=== PATIENT | male | born 1980 | race Caucasian/White ===

== ENCOUNTER 2018-09-26 06:42 | Emergency (ER) | payer BC, OTHER ==
[~2018-09-26] VITALS: Ht 177.8 cm; Wt 90.7 kg
[2018-09-26] MEDS ORDERED: NS IV 1000 ML 1,000 ML IV STA (06:51)
[2018-09-26] MEDS ORDERED: fentaNYL INJECTION 100 MCG/2 ML AMP IVP STA ×2 (06:51→08:10)
[2018-09-26] MEDS ORDERED: KETOROLAC 30 MG/ML VIAL IVP STA (06:51)
[2018-09-26] MEDS ORDERED: ONDANSETRON 4 MG/2 ML (SDV) Z0FRAN IVP ONE (07:00)
[2018-09-26 07:18] LABS: BASOPHILS % (AUTO) 0 % (0-10); EOSINOPHILS # (AUTO) 0.1 10^3/uL (0.0-0.3); EOSINOPHILS % (AUTO) 2 % (0-10); HEMATOCRIT 43 % (40-54); HEMOGLOBIN 14.8 G/DL (13.3-17.7); LYMPHOCYTES # (AUTO) 2.2 X 10^3 (1.0-4.0); LYMPHOCYTES % (AUTO) 29 % (12-44); MEAN CORPUSCULAR HEMOGLOBIN 29 PG (25-34); MEAN CORPUSCULAR HGB CONC 34 G/DL (32-36); MEAN CORPUSCULAR VOLUME 86 FL (80-99); MEAN PLATELET VOLUME 11.3 FL (7.4-10.4); MONOCYTES % (AUTO) 12 % (0-12); NEUTROPHILS # (AUTO) 4.5 X 10^3 (1.8-7.8); NEUTROPHILS % (AUTO) 57 % (42-75); PLATELET COUNT 296 10^3/uL (130-400); RED CELL DISTRIBUTION WIDTH 13.1 % (10.0-14.5); WHITE BLOOD COUNT 7.8 10^3/uL (4.3-11.0)
[2018-09-26 07:32] LABS: ALBUMIN 4.3 GM/DL (3.2-4.5); BILIRUBIN,TOTAL 0.5 MG/DL (0.1-1.0); CALCIUM 9.1 MG/DL (8.5-10.1); CREATININE SERUM 1.48 MG/DL (0.60-1.30); POTASSIUM 3.9 MMOL/L (3.6-5.0); TOTAL PROTEIN 6.7 GM/DL (6.4-8.2)
--- NOTE | 2018-09-26 07:37 | Diagnostic Imaging Report ---
PROCEDURE: CT urinary tract, rule out kidney stone. TECHNIQUE: Multiple contiguous axial images were obtained through the abdomen and pelvis without the use of intravenous contrast. Auto Exposure Controls were utilized during the CT exam to meet ALARA standards for radiation dose reduction. INDICATION: Abdominal pain. COMPARISON: None available. FINDINGS: Evaluation of the abdominal viscera is mildly limited without contrast. Lower chest: The lung bases are clear. No pericardial or pleural effusion. Peritoneum: No free intraperitoneal air or fluid. Liver and biliary system: Unenhanced liver is normal. The gallbladder is normal. No biliary duct dilation. Spleen and Pancreas: Spleen is normal. Unenhanced pancreas is grossly normal. Adrenals: Normal. tract: Mild right hydronephrosis and hydroureter due to a 3 mm partially obstructing stone at the right UVJ. There are a few nonobstructing left renal stones measuring up to 3 mm. No left ureteral stones. Urinary bladder is decompressed. Prostate is not enlarged. GI tract: Stomach is partially filled with fluid and air and there is no wall thickening. No bowel obstruction. No pericolonic inflammatory changes. Appendectomy. Vasculature and Lymph nodes: Normal caliber aorta. No abdominal or pelvic lymphadenopathy. Musculoskeletal: No concerning osseous lesion. IMPRESSION: 1. A 3 mm right UVJ stone is partially obstructing resulting in mild right hydronephrosis and hydroureter. 2. Additional nonobstructing small left renal stones. Dictated by: Dictated on workstation # [id number]
[2018-09-26] MEDS ORDERED: HYDROcodone/APAP 7.5 MG/325 MG (LORTAB, LORCET PLUS) TABLET PO STA (08:10)
[2018-09-26] MEDS ORDERED: NS IV 1000 ML 1,000 ML IV ONE (08:10)
--- NOTE | 2018-09-26 09:05 | ED GU-Male ---
General Chief Complaint: Abdominal/GI Problems Stated Complaint: ABD PAIN Nursing Triage Note: PT AMBULATES TO ROOM 10 AND C/O RIGHT-SIDED ABDOMINAL PAIN STARTING AROUND 0530 WHEN HE TRIED TO GO TO THE BATHROOM. PT STATES HE WASN'T ABLE TO URINATE AND PAIN IS INTENSIFYING. PT IS RESTLESS AND RATES PAIN 9/10 AT THIS TIME. Source: patient Exam Limitations: no limitations History of Present Illness Date Seen by Provider: September 26, 2018 Time Seen by Provider: 06:48 Initial Comments Here with report of right-sided abdominal pain that started about 5:30 this morning. States that it hurt worse with trying to urinate. Unable to get comfortable. No history of kidney stones. Has had appendectomy previously. Has had nausea but no vomiting. Denies fever or chills. Denies recent injury. Timing/Duration: just prior to arrival Severity/Quality: moderate Location: unknown Radiation: none Activities at Onset: none Sexual [place] History: less than 2 months ago Associated Symptoms: abdominal pain, dysuria; No fever/chills; nausea/vomiting; No urinary frequency Allergies and Home Medications Allergies Coded Allergies: morphine (Verified Allergy, Unknown, Nausea, 09/26/18) Patient Home Medication List Home Medication List Reviewed: Yes Review of Systems Review of Systems Constitutional: see HPI; No chills, No fever EENTM: no symptoms reported Respiratory: no symptoms reported Cardiovascular: no symptoms reported Gastrointestinal: see HPI Genitourinary: see HPI All Other Systemes Reviewed Negative Unless Noted: Yes Past Etcagfq-Xxhcvs-Dnejzb Hx Past Med/Social Hx: Reviewed Nursing Past Med/Soc Hx Patient Social History Alcohol Use: Denies Use Recreational Drug Use: No Smoking Status: Never a Smoker 2nd Hand Smoke Exposure: No Recent Foreign Travel: No Contact w/Someone Who Travel: No Recent Infectious Disease Expo: No Recent Hopitalizations: No Seasonal Allergies Seasonal Allergies: No Past Medical History Surgeries: Yes Appendectomy Respiratory: No Cardiac: No Neurological: No Genitourinary: No Gastrointestinal: No Musculoskeletal: No Endocrine: No HEENT: No Cancer: No Psychosocial: No Integumentary: No Family Medical History Reviewed Nursing Family Hx No Pertinent Family Hx Physical Exam Vital Signs Vital Signs - First Documented 09/26/18 07:12 Temp 97.7 Pulse 41 Resp 25 B/P (MAP) 133/79 (97) Pulse Ox 98 O2 Delivery Room Air Capillary Refill : Less Than 3 Seconds Height, Weight, BMI Height: 5'10.00" Weight: 200lbs. oz. 90.765645wy; BMI Method:Estimated General Appearance: WD/WN, no apparent distress HEENT: PERRL/EOMI, pharynx normal Neck: full range of motion, supple Cardiovascular: no murmur, bradycardia Respiratory: lungs clear, normal breath sounds Gastrointestinal: non tender, soft Back: normal inspection, no CVA tenderness, no vertebral tenderness Extremities: non-tender, normal inspection Neurologic/Psychiatric: alert, oriented x 3 Skin: normal color, warm/dry Progress/Results/Core Measures Suspected Sepsis Recent Fever Within 48 Hours: No Infection Criteria Present: Suspected New Infection New/Unexplained Altered Menta: No Sepsis Screen: No Definite Risk SIRS Temperature:97.7 Pulse: 41 Respiratory Rate: 25 Laboratory Tests 09/26/18 07:00: White Blood Count 7.8 Blood Pressure 133 /79 Mean: 97 Laboratory Tests 09/26/18 07:00: Creatinine 1.48H, Platelet Count 296, Total Bilirubin 0.5 Results/Orders Lab Results Laboratory Tests Test 09/26/18 07:00 09/26/18 09:53 Range/Units White Blood Count 7.8 4.3-11.0 10^3/uL Red Blood Count 5.04 4.35-5.85 10^6/uL Hemoglobin 14.8 13.3-17.7 G/DL Hematocrit 43 40-54 % Mean Corpuscular Volume 86 80-99 FL Mean Corpuscular Hemoglobin 29 25-34 PG Mean Corpuscular Hemoglobin Concent 34 32-36 G/DL Red Cell Distribution Width 13.1 10.0-14.5 % Platelet Count 296 130-400 10^3/uL Mean Platelet Volume 11.3 H 7.4-10.4 FL Neutrophils (%) (Auto) 57 42-75 % Lymphocytes (%) (Auto) 29 12-44 % Monocytes (%) (Auto) 12 0-12 % Eosinophils (%) (Auto) 2 0-10 % Basophils (%) (Auto) 0 0-10 % Neutrophils # (Auto) 4.5 1.8-7.8 X 10^3 Lymphocytes # (Auto) 2.2 1.0-4.0 X 10^3 Monocytes # (Auto) 1.0 0.0-1.0 X 10^3 Eosinophils # (Auto) 0.1 0.0-0.3 10^3/uL Basophils # (Auto) 0.0 0.0-0.1 10^3/uL Sodium Level 144 135-145 MMOL/L Potassium Level 3.9 3.6-5.0 MMOL/L Chloride Level 109 H 98-107 MMOL/L Carbon Dioxide Level 21 21-32 MMOL/L Anion Gap 14 5-14 MMOL/L Blood Urea Nitrogen 23 H 7-18 MG/DL Creatinine 1.48 H 0.60-1.30 MG/DL Estimat Glomerular Filtration Rate 53 BUN/Creatinine Ratio 16 Glucose Level 146 H 70-105 MG/DL Calcium Level 9.1 8.5-10.1 MG/DL Corrected Calcium 8.9 8.5-10.1 MG/DL Total Bilirubin 0.5 0.1-1.0 MG/DL Aspartate Amino Transf (AST/SGOT) 24 5-34 U/L Alanine Aminotransferase (ALT/SGPT) 28 0-55 U/L Alkaline Phosphatase 48 40-136 U/L Total Protein 6.7 6.4-8.2 GM/DL Albumin 4.3 3.2-4.5 GM/DL Urine Color YELLOW Urine Clarity CLEAR Urine pH 6 5-9 Urine Specific [place] 1.015 L 1.016-1.022 Urine Protein 1+ H NEGATIVE Urine Glucose (UA) NEGATIVE NEGATIVE Urine Ketones NEGATIVE NEGATIVE Urine Nitrite NEGATIVE NEGATIVE Urine Bilirubin NEGATIVE NEGATIVE Urine Urobilinogen NORMAL NORMAL MG/DL Urine Leukocyte Esterase NEGATIVE NEGATIVE Urine RBC (Auto) 5+ H NEGATIVE Urine RBC 10-25 H /HPF Urine WBC RARE /HPF Urine Squamous Epithelial Cells NONE /HPF Urine Crystals NONE /LPF Urine Bacteria NEGATIVE /HPF Urine Casts NONE /LPF Urine Mucus NEGATIVE /LPF Urine Culture Indicated NO My Orders Orders - CHANELLE GRANADOS MD Ct Abd/Pelvis Wo(Kidney Stone) (09/26/18 06:51) Cbc With Automated Diff (09/26/18 06:51) Comprehensive Metabolic Panel (09/26/18 06:51) Ua Culture If Indicated (09/26/18 06:51) Ondansetron Injection (Zofran Injectio (09/26/18 07:00) Ns Iv 1000 Ml (Sodium Chloride 0.9%) (09/26/18 06:51) Ed Iv/Invasive Line Start (09/26/18 06:51) Fentanyl Injection (Sublimaze Injection (09/26/18 06:51) Ketorolac Injection (Toradol Injection) (09/26/18 06:51) Ed Iv/Invasive Line Start (09/26/18 08:10) Ns Iv 1000 Ml (Sodium Chloride 0.9%) (09/26/18 08:10) Fentanyl Injection (Sublimaze Injection (09/26/18 08:10) Hydrocodone/Apap 7.5/325 Tab (Lortab 7. (09/26/18 08:10) Medications Given in ED Current Medications Medications Dose Ordered Sig/Cecilia Route Start Time Stop Time Status Last Admin Dose Admin Ondansetron HCl 4 mg ONCE ONCE IVP 09/26/18 07:00 09/26/18 07:01 DC 09/26/18 07:06 4 MG Sodium Chloride 1,000 ml @ 0 mls/hr Q0M ONCE IV 09/26/18 08:10 09/26/18 08:12 DC 09/26/18 08:34 1,000 MLS/HR Vital Signs/I&O 09/26/18 07:12 Temp 97.7 Pulse 41 Resp 25 B/P (MAP) 133/79 (97) Pulse Ox 98 O2 Delivery Room Air Capillary Refill : Less Than 3 Seconds Blood Pressure Mean: 97 Progress Note : Progress Note Seen and evaluated. IV, labs, UA, normal saline 1 L bolus, fentanyl 75 g IV, T oradol 30 mg IV and Zofran 4 mg IV ordered. This did improve his pain. 0915: He has still not urinated. He did have increased pain so repeat fentanyl 50 g IV ordered. Hydrocodone 7.5 one tab by mouth ordered. CT does show a stone in the right UVJ. I believe this will pass that he will require pain control. I did discuss with him about kidney stones. He does take supplements for working out including creatine. We did discuss increase hydration needs and stopping supplements at least for a while. He does also have stones in the left kidney. He was notified of this. Pending UA. Repeat normal saline 1 L bolus was ordered Monitor patient. 1015: Overall doing much better. UA is negative. We will continue outpatient antibiotic prophylactically. I did discuss pain control options. He understands that he cannot work today due to the narcotic use and this type of job that he does. I also discussed with him about stopping [id number] supplements due to his creatinine. Discharged home with return precautions. Patient verbalize understanding instructions and agreement with plan. Diagnostic Imaging Diagonstic Imaging: CT Plain Films/CT/US/NM/MRI: abdomen, pelvis Comments NAME: SONU [facility]ENDENHALL [facility] REC#: [id number] PT STATUS: REG ER : 1980 PHYSICIAN: CHANELLE GRANADOS MD ADMIT DATE: 09/26/18/ER Signed Date of Exam: 09/26/18 CT ABD/PELVIS WO(KIDNEY STONE) PROCEDURE: CT urinary tract, rule out kidney stone. TECHNIQUE: Multiple contiguous axial images were obtained through the abdomen and pelvis without the use of intravenous contrast. Auto Exposure Controls were utilized during the CT exam to meet ALARA standards for radiation dose reduction. INDICATION: Abdominal pain. COMPARISON: None available. FINDINGS: Evaluation of the abdominal viscera is mildly limited without contrast. Lower chest: The lung bases are clear. No pericardial or pleural effusion. Peritoneum: No free intraperitoneal air or fluid. Liver and biliary system: Unenhanced liver is normal. The gallbladder is normal. No biliary duct dilation. Spleen and Pancreas: Spleen is normal. Unenhanced pancreas is grossly normal. Adrenals: Normal. tract: Mild right hydronephrosis and hydroureter due to a 3 mm partially obstructing stone at the right UVJ. There are a few nonobstructing left renal stones measuring up to 3 mm. No left ureteral stones. Urinary bladder is decompressed. Prostate is not enlarged. GI tract: Stomach is partially filled with fluid and air and there is no wall thickening. No bowel obstruction. No pericolonic inflammatory changes. Appendectomy. Vasculature and Lymph nodes: Normal caliber aorta. No abdominal or pelvic lymphadenopathy. Musculoskeletal: No concerning osseous lesion. IMPRESSION: 1. A 3 mm right UVJ stone is partially obstructing resulting in mild right hydronephrosis and hydroureter. 2. Additional nonobstructing small left renal stones. Dictated by: Dictated on workstation # [id number] Dict: 09/26/18 0733 Trans: 09/26/18 0854 Interpreted by: SANDRA DUMONT MD Electronically signed by: SANDRA DUMONT MD 09/26/18 0854 Reviewed: Reviewed by Me Departure Impression Primary Impression: Kidney stone on right side Disposition: 01 HOME, SELF-CARE Condition: Improved Departure-Patient Inst. Decision time for Depature: 10:19 Referrals: KATHERINE CACERES MD Patient Instructions: Kidney Stones (DC) Add. Discharge Instructions: All discharge instructions reviewed with patient and/or family. Voiced understanding. Take medication as directed. You may take ibuprofen 800 mg every 8 hours as needed for pain. He may take Tylenol/acetaminophen 1000 mg every 6 hours as needed for pain if you're not taking the prescribed pain medicine. Do not take both at the same time as they both have acetaminophen in them. Do not exceed 4000 mg of acetaminophen and 24 hours. Drink plenty of fluids. Follow up with your Dr. in a few days for recheck if not improved. You will need to seek a urologist if your pain is not improving in the next few days as these will occasionally need other procedures to help clear the stone. Return for worse pain, fever, vomiting, weakness, breathing problems or other concerns as needed. Stop taking the workout supplements as these appear to be affecting your kidneys. Scripts Hydrocodone Bit/Acetaminophen (LORTAB 7.5 MG TABLET) 1 Ea Tablet 1 EACH PO Q6H, #10 TAB 0 Refills Prov: CHANELLE GRANADOS MD 09/26/18 Cephalexin (Cephalexin) 500 Mg Tablet 500 MG PO BID, #14 TAB 0 Refills Prov: CHANELLE GRANADOS MD 09/26/18 CHANELLE GRANADOS MD September 26, 2018 09:05
[2018-09-26 10:01] LABS: BILIRUBIN,URINE NEGATIVE (NEGATIVE); CLARITY,URINE CLEAR; COLOR,URINE YELLOW; GLUCOSE, URINE (UA) NEGATIVE (NEGATIVE); KETONES,URINE NEGATIVE (NEGATIVE); LEUKOCYTE ESTERASE ,URINE NEGATIVE (NEGATIVE); NITRITE,URINE NEGATIVE (NEGATIVE); PH,URINE 6 (5-9); PROTEIN,URINE 1+ (NEGATIVE); UROBILINOGEN,URINE NORMAL (NORMAL)
[2018-09-26 10:07] LABS: BACTERIA,URINE NEGATIVE /HPF; WBC,URINE RARE /HPF
[2018-09-26] MEDS ORDERED: HYDR-34 PO (10:22)
[2018-09-26] MEDS ORDERED: CEPH500T PO (10:22)
[2018-09-26 10:29] VITALS: BP 133/79
== END 2018-09-26 10:29 | disposition home or self-care (01) ==
LOC: ER 06:44
DX: N13.2 Hydronephrosis with renal and ureteral calculous obstruction (principal); Z88.5 Allergy status to narcotic agent; Z90.49 Acquired absence of other specified parts of digestive tract
CPT/HCPCS: 36415; 74176; 80053; 81000; 85025; 96361; 96374; 96375; 96376